=== PATIENT | female | born 1955 | race Caucasian/White ===

== ENCOUNTER 2017-12-26 16:44 | Outpatient (REF) | payer MEDICAID, SELFPAY ==
[2017-12-26 21:38] LABS: TSH (W/Ref FT4) 0.13 uIU/mL (0.358-3.74)
[2017-12-26 21:58] LABS: FREE T4 1.51 ng/dL (0.76-1.46)
== END 2017-12-26 17:04 ==
LOC: NCHCN 16:44
PROVIDERS: PCP Family Medicine; Visit Provider Nurse Practitioner Family
DX: R15.9 Full incontinence of feces (principal); J98.4 Other disorders of lung; C53.9 Malignant neoplasm of cervix uteri, unspecified; G43.909 Migraine, unspecified, not intractable, without status migrainosus; F17.210 Nicotine dependence, cigarettes, uncomplicated; E03.9 Hypothyroidism, unspecified
CPT/HCPCS: 84439; 84443

== ENCOUNTER 2018-01-07 00:46 | Outpatient (CLI) | payer MEDICAID, SELFPAY ==
--- NOTE | 2018-01-07 11:38 | DI.CT_ITS ---
SYMPTOMS/DIAGNOSIS: PULMONARY NODULE, J98.4, F/U DUE IN JANUARY [address]: CT examination of the chest was performed without intravenous contrast administration. Images obtained through the upper abdomen show unremarkable appearance of visualized portions of liver, spleen, pancreas, adrenals and kidneys and shows a previous cholecystectomy. No mediastinal or hilar adenopathy seen. The tracheobronchial tree appears intact. No pleural effusion seen. There are changes of moderate to severe COPD with predominantly apical bullae formation and scarring. Small calcified left lung base intrapulmonary nodule is seen. 5 mm noncalcified left lower lobe pleural based intrapulmonary nodule is also noted. This appears unchanged in comparison with examination of 07/17/17. A previously described 5 mm nodule of the right upper lobe seen on the previous examination in the right lung apex posteriorly is also unchanged. No new intrapulmonary nodule seen, and additional 3 mm triangular nodule is seen in the left lower lobe consistent with an intrapulmonary lymph node and unchanged from the previous study. CONCLUSION: Stable appearance of intrapulmonary nodules as described above. Marked changes of COPD. Follow up low dose noncontrast CT suggested in 12 months.
== END 2018-01-07 01:06 ==
PROVIDERS: PCP Family Medicine; Visit Provider Nurse Practitioner Family
DX: J98.4 Other disorders of lung (principal); J44.9 Chronic obstructive pulmonary disease, unspecified; R91.8 Other nonspecific abnormal finding of lung field
CPT/HCPCS: 71250

== ENCOUNTER 2018-05-19 13:51 | Outpatient (REF) | payer MEDICAID, SELFPAY ==
[2018-05-19 21:24] LABS: Bilirubin Negative (Negative); Blood Trace-intact (Negative); Clarity Clear; Glucose Negative (Negative); Ketones Negative (Negative); Leukocyte Esterase Large (Negative); Nitrite Negative (Negative); Urobilinogen 0.2 EU/dL (Up TO 0.2); pH 6.5 (5-8)
[2018-05-19 21:43] LABS: Bacteria Moderate HPF (Negative); C & S Indicated? Yes; Epithelial Cells Few HPF (Negative); RBC Negative (0-2)
== END 2018-05-19 14:11 ==
LOC: NCHCN 13:51
PROVIDERS: PCP Family Medicine; Visit Provider Nurse Practitioner Family
DX: R31.9 Hematuria, unspecified (principal)
CPT/HCPCS: 87077; 81003; 81015; 87086; 87186

== ENCOUNTER 2018-11-17 10:40 | Outpatient (REF) | payer MEDICAID, SELFPAY ==
[2018-11-17 12:24] LABS: FREE T4 1.24 ng/dL (0.76-1.46); TSH 0.25 uIU/mL (0.36-3.74)
== END 2018-11-17 11:00 ==
LOC: NCHCN 10:40
PROVIDERS: PCP Family Medicine; Visit Provider Nurse Practitioner Family
DX: E03.9 Hypothyroidism, unspecified (principal)
CPT/HCPCS: 84439; 84443

== ENCOUNTER 2019-01-02 12:14 | Outpatient (REF) | payer MEDICAID, SELFPAY ==
[2019-01-02 21:52] LABS: TSH (W/Ref FT4) 0.34 uIU/mL (0.36-3.74)
[2019-01-02 22:18] LABS: FREE T4 1.31 ng/dL (0.76-1.46)
== END 2019-01-02 12:34 ==
LOC: NCHCN 12:14
PROVIDERS: PCP Family Medicine; Visit Provider Nurse Practitioner Family
DX: Z13.29 Encounter for screening for other suspected endocrine disorder (principal); Z00.00 Encounter for general adult medical examination without abnormal findings
CPT/HCPCS: 82565; 84439; 84443

== ENCOUNTER 2019-01-15 00:38 | Outpatient (CLI) | payer MEDICAID, SELFPAY ==
--- NOTE | 2019-01-15 15:02 | DI.DEXA_ITS ---
EXAM: XR DEXA BONE DENSITY W/WO JANA INDICATION: OSTEOPENIA, M85.80. TECHNIQUE: 2D digital imaging was performed. FINDINGS: DEXA scan was performed according to the usual protocol. Findings for lumbar spine scanning are T-sc ore -1.7, prior examination of 06/25/2014 showed T-score -1.6. Left hip scanning shows T-score -2.7 with femoral neck T-score -3.0, prior examination of 2014 showed left hip T-score -2.5. Left forearm scanning shows T-score -2.4. Prior examination 2014 showed left forearm T-score -1.5. IMPRESSION: Findings consistent with osteoporosis according to WHO criteria. Lateral vertebral scanogram shows no evidence of a vertebral compression fracture.
--- NOTE | 2019-01-15 15:23 | DI.MAMMO_ITS ---
EXAM: MAMMO SCREENING CLINICAL HISTORY: SCREENING, Z12.31. TECHNIQUE: Mammograms were interpreted according to the usual protocol including computer analysis w [employer] CAD system, tomosynthesis and C-view imaging. FINDINGS: The breast tissue is of moderate radiodensity. There is no evidence of a mass. There are no suspici ous calcifications and there has been no significant interval change when compared with prior images. IMPRESSION: Category 1. Annual screening mammography is recommended. Breast density, category B. BI-RADS Cat 1 - Negative. Breast Density - Category B - Scattered areas of fibroglandular density.
== END 2019-01-15 00:58 ==
PROVIDERS: PCP Nurse Practitioner Family; Visit Provider Nurse Practitioner Family
DX: Z12.31 Encounter for screening mammogram for malignant neoplasm of breast (principal); M81.0 Age-related osteoporosis without current pathological fracture
CPT/HCPCS: 77063; 77067; 77080

== ENCOUNTER 2019-01-19 01:04 | Outpatient (CLI) | payer MEDICAID, SELFPAY ==
--- NOTE | 2019-01-19 08:37 | DI.CTLCSR_ITS ---
EXAM: CT CHEST LUNG CANCER SCREEN CLINICAL HISTORY: COPD, J44.9, PULMONARY NODULE, J98.4, SMOKER, F17.210. TECHNIQUE: CT scan of the chest was performed utilizing low-dose lung cancer screening protocol. COMPARISON: CT CHEST WO from 01/07/2018 FINDINGS: Current examination is compared with previous January 2018 exam. There are diffuse centrilobular emp hysematous changes of both lungs with bolus formation predominantly in the upper lobes bilaterally. Tracheobronchial tree appears intact. No pleural effusion. No mediastinal or hilar adenopathy. Previously described 5 millimeter, medially located, pleural-based nodule of the left lower lobe seen on prior examination is unchanged. Questionable pleural based right apical nodule also unchanged. No new nodule identified. IMPRESSION: Stable pulmonary nodules as described. Routine LDCT chest recommended in 12 months. Category 2. Lung RADS Cat 2 - Benign Appearance / Behavior: Nodules with a very low likelihood of becoming a clin ically active caner due to size or lack of growth.
== END 2019-01-19 01:24 ==
PROVIDERS: PCP Nurse Practitioner Family; Visit Provider Nurse Practitioner Family
DX: Z12.2 Encounter for screening for malignant neoplasm of respiratory organs (principal); J44.9 Chronic obstructive pulmonary disease, unspecified; R91.8 Other nonspecific abnormal finding of lung field; J98.4 Other disorders of lung; F17.210 Nicotine dependence, cigarettes, uncomplicated
CPT/HCPCS: G0297

== ENCOUNTER 2019-07-30 09:36 | Outpatient (REF) | payer MEDICAID, SELFPAY ==
[2019-07-30 20:17] LABS: TSH (W/Ref FT4) 5.99 uIU/mL (0.36-3.74)
== END 2019-07-30 09:56 ==
LOC: NCHCN 09:36
PROVIDERS: PCP Nurse Practitioner Family; Visit Provider Nurse Practitioner Family
DX: E03.9 Hypothyroidism, unspecified (principal)
CPT/HCPCS: 84439; 84443

== ENCOUNTER 2019-09-15 12:53 | Outpatient (REF) | payer MEDICAID, SELFPAY ==
[2019-09-15 21:23] LABS: TSH (W/Ref FT4) 1.74 uIU/mL (0.36-3.74)
== END 2019-09-15 13:13 ==
LOC: NCHCN 12:53
PROVIDERS: PCP Nurse Practitioner Family; Visit Provider Nurse Practitioner Family
DX: E03.9 Hypothyroidism, unspecified (principal)
CPT/HCPCS: 84443

== ENCOUNTER 2019-10-06 13:56 | Outpatient (REF) | payer MEDICAID, SELFPAY | END 2019-10-06 14:16 | LOC: NCHCN 13:56 | PROVIDERS: PCP Nurse Practitioner Family; Visit Provider Nurse Practitioner Family | DX: R30.0 Dysuria (principal) | CPT/HCPCS: 87077; 87086; 87186 ==

== ENCOUNTER 2019-11-23 12:57 | Day surgery (SDC) | payer MEDICAID, SELFPAY ==
--- NOTE | 2019-11-23 06:20 | COLE_ITS ---
Date of service: 11/23/19 Time of Service: 13:31 Colonoscopy Report Date of procedure: 11/23/19 Pre-op diagnosis general: Colon Cancer Screening Post-op diagnosis procedure note: other (one polyp) Procedure: Colonoscopy with polypectomy Surgeon: Lorene Mccabe Anesthesia proc note operative: other (General/ ASA 2/Radha Corona CRNA ) Estimated blood loss (mL): 2 Pathology: other (sigmoid polyp) Complications: None Disposition: no change Indications: 63 y/o female with history of COPD presents for colonoscopy screening pre-op. She reports her last screening was performed in [place] in 2006, which was unremarkable and that they requested she follow up in 7 years. She denies a family history of colon cancer. She denies any changes in bowel habits including bloody or black tarry stools, abdominal pain, diarrhea or constipation. She denies constitutional symptoms Prep: Miralax/Dulcolax Procedure Start Time: 13:31 Procedure End Time: 14:05 Retraction Time: 23 minutes Findings: One small polyp in the sigmoid colon Procedure Description: After informed consent was obtained the patient was taken to the procedure room and placed in a left decubitous position. Monitors were applied and a time out was done. The patients name, date of , procedure, allergies to medications and metal in their body was reviewed. The patient was then sedated. Once sedated and comfortable a rectal exam was done. External exam was normal. Internal exam revealed a normal sphincter tone and no palpable masses. The scope was then introduced and retro-flexed. No internal hemorrhoids were identified. The scope was then advanced to the cecum without difficulty. The ileocecal valve and appendiceal orifice were identified. The prep was addequate. The scope was then slowly retracted over 23 minutes back into the rectum. Polyps were removed with cold forceps in the sigmoid colon. The scope was removed and the patient was woken up and taken back to Same day surgery in stable condition. The patient tolerated the procedure well and there were no immediate complications. Follow up: The patient should follow up in 3-5 years unless they develop changes in bowel habits or other new gastrointestinal complaints.
--- NOTE | 2019-11-23 10:40 | W.PM.DSUDISC ---
Discharge Plan Disposition Patient Disposition: HOME Condition: Good Discharge Details Reason For Visit: SCREENING Attending Provider: Lorene Mccabe Primary Care Provider: Sravani Sanchez Home Meds and New Rx's Prescriptions: Continued levothyroxine 88 mcg capsule 88 mcg PO DAILY RF: 0 levothyroxine 100 mcg capsule 100 mcg PO DAILY RF: 0 acetaminophen 325 MG capsule 500 mg PO PRN RF: 0 Discontinued polyethylene glycol 3350 17 gram/dose powder 238 g PO ONCE Qty: 238 RF: 0 bisacodyl [Dulcolax (bisacodyl)] 5 mg tablet,delayed release (DR/EC) 5 mg PO ONCE Qty: 4 RF: 0 Discharge Instructions Instructions: Colorectal Polyps (DC) Additional Instructions: Findings: one polyp Follow up: depends on pathology results Please call if you develop: fevers >101.5 Nausea or Vomiting Abdominal pain that is not transient DAY SURGERY UNIT POST ENDOSCOPY INSTRUCTIONS 1. Because there will be medication in your system for the next 24 hours, you may feel a little sleepy. Your coordination will be affected. Therefore: a. Do not drive or operate dangerous equipment for 24 hours. b. Do not drink alcohol beverages for 24 hours (not even beer). c. Plan to go home and rest for the day. 2. Generally there are no restrictions on your activity after a day or so has gone by, but you may feel a bit fatigued for a few days. 3 After you arrive home you may have a light meal and return to a normal diet as you can tolerate it without feeling sick to your stomach. 4. After surgery, you may feel pain or discomfort. This should be only transient, but if it persists please contact your doctor. 5. If there are any questions regarding the findings of your procedure, please feel free to contact your doctor. 6. If you are unable to contact your doctor with a problem, contact the hospital at [phone]. 7. Continue all your regular medications unless directed otherwise. I understand the above instructions and have no questions. Signature of Patient or Responsible Adult Escort Date/Time Name of Responsible Adult Escort Signature of Nurse Date/Time Activity:: Activity as Tolerated Diet:: As Tolerated Discharge Orders Discharge Orders: Discharge Order (Routine); Ordered 11/23/19 Ordered By: Lorene Mccabe
[2019-11-23 13:23] VITALS: BP 111/73; PULSE 84; RESP 16; TEMP 36.2; O2SAT 99
[2019-11-23] MEDS: Lactated Ringers 1,000 ML 80 ML IV (13:40)
--- NOTE | 2019-11-23 14:45 | BOWEL_PTH ---
PATIENT: Nancy Cole LOC: [facility] U#:[id number] AGE/SX: 63/F ROOM: RE11/23/[address]: Lorene Mccabe MD : [id number] BED: DIS: 11/23/2019 SPEC #: [id number] RECD: 11/23/19 17:17 STATUS: UZAIR REQ #: [id number] QUENTIN: 11/23/19 14:[address]: Lorene Mccabe DEPT: Surgical Specimen RECD BY: Salma Cheung ENTERED: 11/23/19 17:18 SP TYPE: Bowel OTHR DR: Sravani Sanchez Tissues: 1 - BIOPSY BOWEL Procedures: GROSS AND MICRO LEVEL 4 Comments: [id number]
[2019-11-23 15:30] VITALS: BP 130/76; PULSE 58; RESP 18; TEMP 36.3; O2SAT 96
--- NOTE | 2019-11-23 16:06 | NUR.NOTE ---
Nursing Note: 1415: in to see pt. prior to procedure to discuss driving for work tomorrow. told pt. it is okay for her to drive to work on November 23.
== END 2019-11-23 15:57 | disposition home or self-care (01) ==
LOC: SUR 12:57
PROVIDERS: PCP Nurse Practitioner Family; Visit Provider Surgery
PROC: 0DJD8ZZ Inspection of Lower Intestinal Tract, Via Natural or Artificial Opening Endoscopic (ICD-10-PCS; CPT 45378; principal; 2019-11-23 14:45)
DX: Z12.11 Encounter for screening for malignant neoplasm of colon (principal); D12.5 Benign neoplasm of sigmoid colon; J44.9 Chronic obstructive pulmonary disease, unspecified
CPT/HCPCS: 45380; 88305

== ENCOUNTER 2020-06-15 02:13 | Outpatient (CLI) | payer MEDICAID, SELFPAY ==
--- NOTE | 2020-06-15 08:59 | DI.MAMMO_ITS ---
EXAM: MAMMO SCREENING CLINICAL HISTORY: SCREENING, Z12.31 TECHNIQUE: Bilateral full field digital CC and MLO mammographic images were obtained with 3D tomosyn thesis and utilizing computer aided detection (CAD). COMPARISON: Available for comparison. FINDINGS: Masses/Architectural Distortion: There is an asymmetry in the outer right breast on the CC view. Microcalcifications: No suspicious pleomorphic-type are seen. Skin Thickening/Nipple Retraction: None. IMPRESSION: 1. Asymmetry in the outer right breast on the CC view. 2. This area should be further evaluated with a spot compression view. Ultrasound may be indicated a t that time. BI-RADS Category 0 - Assessment Incomplete: Need additional imaging evaluation Breast Density - Category B - Scattered areas of fibroglandular density Breast density category C or D implies that the patient has dense breast tissue. Dense breast tissue is very common and is not abnormal but dense breast tissue can make it harder to find cancer on a ma mmogram. Also, dense breast tissue may increase their breast cancer risk. This information about the result of the mammogram report was provided to the patient to raise their awareness. Use this report when you speak with the patient about their risks for breast cancer, which includes their family hist ory. At that time, you may recommend for more screening tests (Ultrasound or MRI) as they might be us eful based on their risk. A negative radiographic report should not delay biopsy if a dominant or clinically suspicious mass is present. Up to ten percent of cancers are not identified on mammography. A negative report may reinforce clinical impression. Adenosis and dense breasts may obscure an underlying neoplasm. False positive reports average 6 to 10%. Patient will receive a letter notifying them of these results.
== END 2020-06-15 02:33 ==
PROVIDERS: PCP Nurse Practitioner Family; Visit Provider Nurse Practitioner Family
DX: Z12.31 Encounter for screening mammogram for malignant neoplasm of breast (principal); R92.8 Other abnormal and inconclusive findings on diagnostic imaging of breast
CPT/HCPCS: 77063; 77067

== ENCOUNTER 2020-06-23 01:27 | Outpatient (CLI) | payer MEDICAID, SELFPAY ==
--- NOTE | 2020-06-23 | DI.US_ITS ---
EXAM: US BREAST RT LIMITED CLINICAL HISTORY: F/U MAMMOP, ASYMMETRY RT OUTER BREAST. TECHNIQUE: Limited ultrasound of the right breast was performed. COMPARISON: Prior mammograms were reviewed. FINDINGS: No evidence of solid or significant cystic lesions. No abnormal findings correspond to the area of p ossible concern on the screening mammogram of 06/15/2020 IMPRESSION: Negative right breast ultrasound Please note additional spot mammographic views were also less concerning today. Appropriate follow-up is to keep this patient yearly mammogram schedule, with earlier imaging if a se lf detected breast changes noted.. BI-RADS Category 2 - Benign Findings Breast Density - Category B - Scattered areas of fibroglandular density Breast density Category C or D implies that the patient has dense breast tissue. Dense breast tissue can make it harder to find cancer on a mammogram. Dense breast tissue is also associated with an incr eased risk of breast cancer. This information about the result of the mammogram report was provided to the patient to raise their awareness. Use this report when you speak with the patient about their risks for breast cancer, which includes their family history. At that time, you may recommend additional screening tests (Ultrasoun d or MRI) as these tests may add significant information. A negative radiographic report should not delay biopsy if a dominant or clinically suspicious mass is present. Up to ten percent of cancers are not identified on mammography. A negative report may reinforce clinical impression. Adenosis and dense breasts may obscure an underlying neoplasm. False positive reports average 6 to 10%. Patient will receive a letter notifying them of these results.
--- NOTE | 2020-06-23 10:49 | DI.MAMMO_ITS ---
EXAM: MG MAMMO SCREEN CALL BACK UNI CLINICAL HISTORY: F/U MAMMO, ASYMMETRY RT OUTER BREAST. TECHNIQUE: Spot compression CC 3D mammographic images were obtained with 3D tomosynthesis and utiliz ing computer aided detection (CAD). COMPARISON: Prior mammograms reviewed,, the most recent being June 15, 2020. FINDINGS: Spot compression cc 3D view of the finding in the lateral aspect of the right breast renders this are a less concerning. Right breast ultrasound performed following this diagnostic mammogram also reveals no significant foc al ultrasound findings . IMPRESSION: No radiographic evidence of malignancy in the right breast. BI-RADS Category 2 - Benign Findings Breast Density - Category B - Scattered areas of fibroglandular density Breast density Category C or D implies that the patient has dense breast tissue. Dense breast tissue can make it harder to find cancer on a mammogram. Dense breast tissue is also associated with an incr eased risk of breast cancer. This information about the result of the mammogram report was provided to the patient to raise their awareness. Use this report when you speak with the patient about their risks for breast cancer, which includes their family history. At that time, you may recommend additional screening tests (Ultrasoun d or MRI) as these tests may add significant information. A negative radiographic report should not delay biopsy if a dominant or clinically suspicious mass is present. Up to ten percent of cancers are not identified on mammography. A negative report may reinforce clinical impression. Adenosis and dense breasts may obscure an underlying neoplasm. False positive reports average 6 to 10%. Patient will receive a letter notifying them of these results.
== END 2020-06-23 01:47 ==
PROVIDERS: PCP Nurse Practitioner Family; Visit Provider Nurse Practitioner Family
DX: R92.8 Other abnormal and inconclusive findings on diagnostic imaging of breast (principal)
CPT/HCPCS: 76642; 77063; 77067

== ENCOUNTER 2020-07-11 12:41 | Outpatient (REF) | payer MEDICAID, SELFPAY ==
[2020-07-11 14:21] LABS: Calculated LDL 96 mg/dL (<100); Cholesterol 156 mg/dL (<200); HDL Cholesterol 44 mg/dL (40-60); TSH (W/Ref FT4) 0.57 uIU/mL (0.36-3.74); Triglyceride 81 mg/dL (<150)
[2020-07-11 14:26] LABS: Vitamin D 25 Total 24.6 ng/mL (30-100)
== END 2020-07-11 12:42 | disposition home or self-care (01) ==
LOC: NCHCN 12:41
PROVIDERS: PCP Nurse Practitioner Family; Visit Provider Nurse Practitioner Family
DX: E03.9 Hypothyroidism, unspecified (principal); F17.210 Nicotine dependence, cigarettes, uncomplicated; E55.9 Vitamin D deficiency, unspecified
CPT/HCPCS: 80061; 82306; 84443

== ENCOUNTER 2020-07-28 01:56 | Outpatient (CLI) | payer MEDICAID, SELFPAY ==
--- NOTE | 2020-07-28 | DI.CTLCSR_ITS ---
EXAM: CT CHEST LUNG CANCER SCREEN CLINICAL HISTORY: SCREENING FOR LUNG CA, COPD,SMOKER, F17.210,PULMONARY NODULE,J98.4. TECHNIQUE: Imaging Protocol: Low Dose Technique CONTRAST MATERIAL: None COMPARISON: CT CT CHEST LUNG CANCER SCREEN from 01/19/2019 FINDINGS: CHEST: LUNGS: Scarring in both lung apices is unchanged and not associated with overlying rib destruction. Emphysematous bullae noted bilaterally.. Mild increased subpleural markings in the lateral aspect of the left upper lobe are slightly increased from previous but without a distinct nodule at this locat ion. The previously described subpleural nodule in the left lower lobe is again noted, measuring 5 m illimeters, unchanged.. There are no new nodules evident in the right lung. In the left lung base p osterior basal segment there is a partially calcified 4 millimeter nodule which is unchanged. No sig nificant focal findings evident in the trachea and mainstem bronchi. No pleural effusions. MEDIASTINUM: There is no obvious hilar nor mediastinal adenopathy. CARDIAC: Heart size is normal. There is no pericardial effusion.Some mild coronary artery calcificat ion is noted in the LAD. Caliber thoracic aorta is within normal limits. OTHER: Gallbladder surgically absent. OSSEOUS: No significant osseous lesions.. IMPRESSION: 1. Stable appearance of the previously described left lung pleural-based nodules. 2. Slight increase in peripheral left upper lobe markings, present exhibiting benign appearance. No pleural effusions. No obvious intrathoracic adenopathy. 3. Lung RADS Cat 2 - Benign Appearance / Behavior: Nodules with a very low likelihood of becoming a c linically active cancer due to size or lack of growth Lung-RADS 1.0 CATEGORIES: Category 0 - Prior chest CT exam(s) being located for comparison. Category 1 - Annual screening in 12 months. No nodules or definitely benign nodules. Category 2 - Annual screening in 12 months. Benign appearance. Nodules with low likelihood of becomin g active cancer. Category 3 - 6-month follow-up. Probably benign. Short-term follow-up suggested. Nodules with low lik elihood of becoming active cancer. Category 4A - 3-month follow-up and CT/PET if >8 mm in size. Suspicious finding. Findings which requi re additional testing. Category 4B - Findings which require additional testing and tissue sampling. Modifier S- Potentially clinically significant findings (non lung cancer) RADIATION DOSE DELIVERED: 77.86mGy.cm Total DLP 1.84mGy CTDIvol DATA REPOSITORY: All CT scans at this facility are submitted to the National Radiology Data Registry (NRDR) Dose Index Registry (DIR) with the [employer] (A[employer]). RADIATION OPTIMIZATION: All CT scans at this facility use at least one of these dose optimization te chniques: automated exposure control; mA and/or kV adjustment per patient size (includes targeted exa ms where dose is matched to clinical indication); or iterative reconstruction.
== END 2020-07-28 02:16 ==
PROVIDERS: PCP Nurse Practitioner Family; Visit Provider Nurse Practitioner Family
DX: Z12.2 Encounter for screening for malignant neoplasm of respiratory organs (principal); F17.210 Nicotine dependence, cigarettes, uncomplicated; J44.9 Chronic obstructive pulmonary disease, unspecified; J98.4 Other disorders of lung
CPT/HCPCS: 71271

== ENCOUNTER 2021-07-28 13:17 | Outpatient (REF) | payer MEDICAID, SELFPAY ==
[2021-07-28 16:18] LABS: TSH (W/Ref FT4) 0.36 uIU/mL (0.36-3.74)
[2021-07-31 06:02] LABS: Vitamin D 25 Total 21.8 ng/mL (30-100)
== END 2021-07-28 13:18 | disposition home or self-care (01) ==
LOC: NCHCN 13:17
PROVIDERS: PCP Nurse Practitioner Family; Visit Provider Nurse Practitioner Family
DX: E03.9 Hypothyroidism, unspecified (principal); E55.9 Vitamin D deficiency, unspecified; M81.0 Age-related osteoporosis without current pathological fracture; G43.909 Migraine, unspecified, not intractable, without status migrainosus; J44.9 Chronic obstructive pulmonary disease, unspecified
CPT/HCPCS: 82306; 84443

== ENCOUNTER → 2021-08-29 01:43 | Outpatient (CLI) | payer MEDICAID, SELFPAY ==
--- NOTE | 2021-08-29 09:15 | DI.CTLCSR_ITS ---
Exam(s) CT CHEST LUNG CANCER SCREEN EXAM: CT CHEST LUNG CANCER SCREEN CLINICAL HISTORY: SMOKER, F17.210; COPD, J44.9; PULMONARY NODULE, J98.4 TECHNIQUE: CT examination of the chest was performed utilizing low-dose lung cancer screening protoc . COMPARISON: CT CT CHEST LUNG CANCER SCREEN from 07/28/2020 FINDINGS: Images obtained through the upper abdomen show unremarkable appearance of visualized portions of the liver and spleen. Note is made of coronary artery calcifications. There is no mediastinal or hilar adenopathy. Mediastinal vascular structures appear intact by noncon trast criteria. Tracheobronchial tree appears intact. No pleural effusion or pleural-based mass. Note is again made of a 5 millimeter mean diameter pleural based left lower lobe intrapulmonary nodul e as seen on examination of July 2020. No significant change. No significant new intrapulmonary no dule. Note is again made of moderate to severe pulmonary emphysematous changes with prominent subpleural em physema. IMPRESSION: Lung RADS Cat 2 - Benign Appearance / Behavior: Nodules with a very low likelihood of becoming a cli nically active cancer due to size or lack of growth Continue annual screening with LDCT in 12 months. Lung-RADS 1.0 CATEGORIES: Category 0 - Prior chest CT exam(s) being located for comparison. Category 1 - Annual screening in 12 months. No nodules or definitely benign nodules. Category 2 - Annual screening in 12 months. Benign appearance. Nodules with low likelihood of becomin g active cancer. Category 3 - 6-month follow-up. Probably benign. Short-term follow-up suggested. Nodules with low lik elihood of becoming active cancer. Category 4A - 3-month follow-up and CT/PET if >8 mm in size. Suspicious finding. Findings which requi re additional testing. Category 4B - Findings which require additional testing and tissue sampling. Suspicious finding. Category 4X - Category 3 or 4 nodules with additional features or imaging findings that increases the suspicion of malignancy. Modifier S- Potentially clinically significant finding. (Non lung cancer) RADIATION DOSE DELIVERED: 74.67mGy.cm Total DLP 1.84mGy CTDIvol 74.67mGy.cm Total DLP !Error CTDIvol RADIATION OPTIMIZATION: All CT scans at this facility use at least one of these dose optimization te chniques: automated exposure control; mA and/or kV adjustment per patient size (includes targeted exa ms where dose is matched to clinical indication); or iterative reconstruction.
== END ==
PROVIDERS: PCP Nurse Practitioner Family; Visit Provider Nurse Practitioner Family
DX: Z12.2 Encounter for screening for malignant neoplasm of respiratory organs (principal); F17.210 Nicotine dependence, cigarettes, uncomplicated; J98.4 Other disorders of lung; J44.9 Chronic obstructive pulmonary disease, unspecified; R91.1 Solitary pulmonary nodule
CPT/HCPCS: 71271

== ENCOUNTER → 2021-09-28 02:16 | Outpatient (CLI) | payer MEDICAID, SELFPAY ==
--- NOTE | 2021-09-28 14:00 | DI.DEXA_ITS ---
Exam(s) XR DEXA BONE DENSITY W/WO JANA EXAM: XR DEXA BONE DENSITY W/WO JANA CLINICAL HISTORY: OSTEOPOROSIS, M81.0 TECHNIQUE: Zones C densitometer analysis of left hip, lumbar spine and left forearm. COMPARISON: CR XR DEXA BONE DENSITY W/WO JANA from 2004 through 2019 FINDINGS: Lateral view of the thoracic and lumbar spine shows no evidence of compression fractures. Bone mineral density measurements of the lumbar spine correspond to a total T-score of -2.1, in the osteopenic range. This represents a 4.9 percent decrease compared with 2019 and a 16.5 percent decr ease when compared with 2004. Bone mineral density measurements of the left hip correspond to a total T-score of -2.9. The femora l neck T-score is -3.3, in the osteoporotic range. This represents a 4.8 percent decrease when comp ared with 2019 and a 12.8 percent decrease when compared with 2004.. The right forearm bone mineral density measurements correspond to a T-score of the distal 3rd of -2. 5, consistent with osteoporosis. The right forearm was not scanned on prior exams.. IMPRESSION: Osteoporosis of the left hip. Osteopenia of the lumbar spine. Osteoporosis of the right forearm. D ecrease in bone density compared with priors.
--- NOTE | 2021-09-28 14:30 | DI.MAMMO_ITS ---
Exam(s) MAMMO SCREENING EXAM: MAMMO SCREENING CLINICAL HISTORY: SCREENING, Z12.31 TECHNIQUE: Mammograms were interpreted according to the usual protocol including computer analysis w [employer] system, tomosynthesis and C-view imaging. COMPARISON: 2013 through 2020 FINDINGS: The breasts are composed of scattered fibroglandular densities, Breast Density category B. No suspicious masses or suspicious microcalcifications are seen. No skin thickening or abnormal axillary lymph nodes are seen. There has been no significant change from prior exams. IMPRESSION: BI-RADS Category 1, Negative mammogram Yearly screening mammography is recommended. Breast Density - Category B, scattered fibroglandular densities. A negative radiographic report should not delay biopsy if a dominant or clinically suspicious mass is present. Up to ten percent of cancers are not identified on mammography. A negative report may reinforce clinical impression. Adenosis and dense breasts may obscure an underlying neoplasm. False positive reports average 6 to 10%. Patient will receive a letter notifying them of these results.
== END ==
PROVIDERS: PCP Nurse Practitioner Family; Visit Provider Nurse Practitioner Family
DX: Z12.31 Encounter for screening mammogram for malignant neoplasm of breast (principal); M81.0 Age-related osteoporosis without current pathological fracture; M85.89 Other specified disorders of bone density and structure, multiple sites
CPT/HCPCS: 77063; 77067; 77080

== ENCOUNTER 2021-11-03 01:16 | Outpatient (CLI) | payer MEDICAID, SELFPAY ==
[2021-11-03 10:33] LABS: ALT 26 U/L (14-59); AST 18 U/L (15-37); Albumin 3.8 g/dL (3.4-5.0); Alkaline Phosphatase 98 U/L (46-116); Bilirubin, Direct 0.1 mg/dL (0.0-0.2); Bilirubin, Total 0.7 mg/dL (0.2-1.0); Total Protein 7.4 g/dL (6.4-8.2)
== END 2021-11-03 01:17 | disposition home or self-care (01) ==
LOC: LBO 01:16
PROVIDERS: PCP Nurse Practitioner Family; Visit Provider Nurse Practitioner
DX: B35.1 Tinea unguium (principal); T36.7X5A Adverse effect of antifungal antibiotics, systemically used, initial encounter
CPT/HCPCS: 36415; 80076

== ENCOUNTER 2022-01-24 12:31 | Outpatient (CLI) | payer MEDICARE, MEDICAID, SELFPAY ==
[2022-01-24 12:55] LABS: ALT 25 U/L (14-59); AST 22 U/L (15-37); Albumin 3.8 g/dL (3.4-5.0); Alkaline Phosphatase 101 U/L (46-116); Bilirubin, Direct 0.1 mg/dL (0.0-0.2); Bilirubin, Total 0.6 mg/dL (0.2-1.0); Total Protein 7.6 g/dL (6.4-8.2)
== END 2022-01-24 12:32 | disposition home or self-care (01) ==
LOC: LBO 12:41
PROVIDERS: PCP Nurse Practitioner Family; Visit Provider Nurse Practitioner
DX: T36.7X5A Adverse effect of antifungal antibiotics, systemically used, initial encounter (principal); B35.1 Tinea unguium
CPT/HCPCS: 36415; 80076

== ENCOUNTER 2022-08-07 11:06 | Outpatient (REF) | payer MEDICARE, MEDICAID, SELFPAY | END 2022-08-07 11:07 | disposition home or self-care (01) | LOC: LBN 11:06 | PROVIDERS: PCP Nurse Practitioner Family; Visit Provider Physician Assistant | DX: L03.116 Cellulitis of left lower limb; L98.8 Other specified disorders of the skin and subcutaneous tissue; B35.3 Tinea pedis | CPT/HCPCS: 87070; 87205 ==

== ENCOUNTER 2022-08-08 00:37 | Outpatient (CLI) | payer MEDICARE, MEDICAID, SELFPAY ==
--- NOTE | 2022-08-08 09:55 | DI.RAD_ITS ---
Exam(s) XR FOOT LT COMPLETE EXAM: XR FOOT LT COMPLETE CLINICAL HISTORY: cellulitis, excoriation, pain left 4-5 toes,tinea pedis lt foot,b35.3,l03.1. TECHNIQUE: 2D digital imaging was performed of the left foot. Three images were obtained. AP, obli que and lateral views were obtained. COMPARISON: No exams were available for comparison FINDINGS: BONES: No acute fracture is present. No bony destructive lesion is seen. JOINTS: No dislocation present. The joint spaces are well maintained. SOFT TISSUE: Normal. IMPRESSION: Unremarkable radiographs of the left foot. DATA REPOSITORY: RADIATION DOSE DELIVERED:
== END 2022-08-08 00:57 ==
PROVIDERS: PCP Nurse Practitioner Family; Visit Provider Physician Assistant
DX: B35.3 Tinea pedis (principal); L03.116 Cellulitis of left lower limb
CPT/HCPCS: 73630

== ENCOUNTER 2022-08-20 14:38 | Outpatient (REF) | payer MEDICARE, MEDICAID, SELFPAY ==
--- NOTE | 2022-08-20 14:15 | PAPFT_PTH ---
PATIENT: Nancy Cole LOC: [facility]#:[id number] AGE/SX: 66/F ROOM: RE08/20/[address]: Sravani Sanchez : 1955 BED: DIS: 08/20/2022 SPEC #: [id number] RECD: 08/21/22 12:43 STATUS: UZAIR REQ #: [id number] QUENTIN: 08/20/22 14:[address]: Sravani Sanchez DEPT: [facility] Cytology RECD BY: Ella Huang Tissues: 1 - CX/ENDOCX FOR PAP SMEARS Procedures: PAP THIN PREP/[facility] Screening HPV DNA PROBE Comments: [id number]
[2022-08-20 21:21] LABS: TSH (W/Ref FT4) 0.24 uIU/mL (0.36-3.74)
[2022-08-20 21:38] LABS: FREE T4 1.42 ng/dL (0.76-1.46)
== END 2022-08-20 14:39 | disposition home or self-care (01) ==
LOC: NCHCN 14:38
PROVIDERS: PCP Nurse Practitioner Family; Visit Provider Nurse Practitioner Family
DX: E03.9 Hypothyroidism, unspecified (principal); Z11.51 Encounter for screening for human papillomavirus (HPV); Z01.419 Encounter for gynecological examination (general) (routine) without abnormal findings
CPT/HCPCS: 88142; 84439; 84443; 87624

== ENCOUNTER 2022-09-05 17:12 | Outpatient (REF) | payer MEDICARE, MEDICAID, SELFPAY ==
[2022-09-05 21:23] LABS: Uric Acid 4.8 mg/dL (2.6-6.0)
== END 2022-09-05 17:13 | disposition home or self-care (01) ==
LOC: LBN 17:12
PROVIDERS: PCP Nurse Practitioner Family; Visit Provider Nurse Practitioner Family
DX: M79.675 Pain in left toe(s) (principal)
CPT/HCPCS: 84550

== ENCOUNTER 2023-03-07 13:29 | Outpatient (REF) | payer MEDICARE, SELFPAY ==
[2023-03-07 21:07] LABS: Bilirubin Negative (Negative); Blood Trace-intact (Negative); Clarity Clear (Clear); Glucose Negative (Negative); Ketones Negative (Negative); Leukocyte Esterase Small (Negative); Nitrite Negative (Negative); Urobilinogen 0.2 mg/dL (Up to 0.2); pH 5.5 (5-8)
[2023-03-07 21:54] LABS: Bacteria Rare HPF (Negative); C & S Indicated? No/Sq. Contamination; Crystals Negative HPF (Negative); Epithelial Cells Many HPF (Negative); Mucus Heavy (Negative); RBC 0-2 HPF (0-2)
== END 2023-03-07 13:30 | disposition home or self-care (01) ==
LOC: LBN 13:29
PROVIDERS: PCP Nurse Practitioner Family; Visit Provider Nurse Practitioner Family
DX: R39.9 Unspecified symptoms and signs involving the genitourinary system (principal)
CPT/HCPCS: 81003; 81015

== ENCOUNTER 2024-02-05 13:19 | Outpatient (REF) | payer MEDICARE, SELFPAY | END 2024-02-05 13:20 | disposition home or self-care (01) | LOC: LBN 13:19 | PROVIDERS: PCP Nurse Practitioner Family; Visit Provider Nurse Practitioner Family | DX: L98.9 Disorder of the skin and subcutaneous tissue, unspecified (principal) | CPT/HCPCS: 87070; 87205 ==

== ENCOUNTER 2024-02-05 13:33 | Outpatient (CLI) | payer MEDICARE, SELFPAY ==
--- NOTE | 2024-02-05 13:01 | DI.RAD_ITS ---
Exam(s) XR FOOT LT COMPLETE EXAM: XR FOOT LT COMPLETE CLINICAL HISTORY: evaluate osteo 5th mcp, infected blister, s90.425a,l08.9. TECHNIQUE: 2D digital imaging was performed. Three views. COMPARISON: No exams were available for comparison FINDINGS: BONES: No acute fracture is present. No bony destructive lesion is seen. JOINTS: No dislocation present. SOFT TISSUE: Normal soft tissue swelling adjacent 5th metatarsal head and 5th toe. IMPRESSION: Soft tissue swelling. No radiographic evidence of osteomyelitis. DATA REPOSITORY: RADIATION DOSE DELIVERED:
== END 2024-02-05 13:53 ==
LOC: DI 13:33
PROVIDERS: PCP Nurse Practitioner Family; Visit Provider Nurse Practitioner Family
DX: S90.425D Blister (nonthermal), left lesser toe(s), subsequent encounter (principal); X58.XXXD Exposure to other specified factors, subsequent encounter
CPT/HCPCS: 73630